=== PATIENT | male | born 1990 | race Asian ===

== ENCOUNTER 2020-11-21 09:45 | Emergency (ER) | payer OTHER ==
[~2020-11-21] VITALS: Ht 177.8 cm; Wt 63.5 kg
[2020-11-21 10:03] VITALS: TEMP 97.5
[2020-11-21 13:00] VITALS: BP 118/78
== END 2020-11-21 13:35 | disposition home or self-care (01) ==
LOC: ED 09:45
DX: J06.9 Acute upper respiratory infection, unspecified (principal); U07.1 COVID-19
CPT/HCPCS: 87635; 87651; 99283; U0003